=== PATIENT | female | born 1975 | race Caucasian/White ===

== ENCOUNTER 2024-12-12 10:49 | Outpatient (AMB) | payer OTHER, SELFPAY ==
--- NOTE | 2024-12-12 10:56 | MHC.PC.OV ---
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 Intake Note: new patient to establish care Shopping Centre Manager Required: No Allergies codeine Allergy (Severe, Verified 12/12/24 11:24) Hives Penicillins Allergy (Severe, Verified 12/12/24 11:24) Hives Medication List - Last Reconciled 12/12/24 by Beverly Clarke, AURELIO- No Known Home Meds Tobacco use date assessed: 12/12/24 Dental Screening Dental Screen Date: 12/12/24 Did you have a dental visit in the last 12 months?: Yes Did you have a dental problem in the last 6 months where you did not have access to dental care?: No Was dental information given to patient?: Patient has dentist HPI HPI Comments History of Present Illness Details 49 y/o F with tobacco dependence (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), panic disorder, allergic rhinitis, varicose veins, family history lung cancer (mom) Status post , tonsillectomy Family history: Father is recovering alcoholic, mother age 65 due to sepsis and lung cancer, maternal grandfather with hypertension and type 2 diabetes Social works at [employer]; 5 children, Health Maintenance DEXA still getting periods Mammo ordered today has never had one Colon declined Pap last one before COVID , refer to [facility] today Tdap 2012 declined update today, declined flu Specialists Optho ears glasses last exam 2 years ago, will get updated eye exam [facility] Here today to est care and for a CPE. Previous P[facility]: [facility], records reviewed c/o R ear and neck discomfort. She has a history of allergic rhinitis which was problematic in her youth, leading to surgery on her tonsils and adenoids, followed by weekly allergy shots. The patient's symptoms resolved after childbirth but have recurred recently. She describes a mild but persistent discomfort in her ear that extends into her neck, with itchiness also noted. The patient has sought care previously, being advised to take [id number] Sudafed & antihistamine. She has a prescription history with medications such as Claritin D, but accessibility and cost are concerns. The patient manages mild R knee pain, diagnosed with osteoarthritis, with ibuprofen. She does not report any significant swelling. She is a former smoker, having successfully quit multiple times. Health Maintenance - Declined recent flu and tetanus vaccinations. - No mammogram screening since onset of COVID-19 pandemic; agreed to mammogram referral. - Declined colonoscopy, - Eye exam due; plans to schedule under new insurance. 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 - with five children; lives in [place]. - Former smoker, currently abstaining. - Engages in various herbal and natural remedies for health maintenance. Review of Systems - Head, Eyes, Ears, Nose, Throat: Reports earache, neck discomfort, itchy ears, itchy neck. - Musculoskeletal: Reports right knee pain without significant swelling. varicose veins ble, right thigh has some congestion day 1 of menses, she manages w/ Ibu with + effect. Wore compression socks in past with + effect. Physical Exam General: Well developed, well nourished, in no acute distress. Appears stated age. Head: Normocephalic, atraumatic. Eyes: Pupils are equal, round and reactive to light and accommodation. Conjunctivae are clear. Vision grossly normal. Ears: TMs inact AU, clouding and congestion R TM EACS WNL Nose: Patent, without discharge. Mouth: There are no ulcers or lesions noted. No inflammation, no post nasal drip, no plaques nor exudates. Neck: Supple, no adenopathy or thyromegaly. Lungs: Clear to auscultation bilaterally. No rales, rhonchi or wheeze noted. Good air flow in all polk. Heart: Regular rate and rhythm. No murmurs, click, rubs or gallops are noted. Abdomen: Bowel sounds present in all quadrants. The abdomen is soft, nontender, with no masses or organomegaly noted. No hernias are noted. Musculoskeletal: Joints are nontender, without swelling, redness, or effusions. Range of motion is observed to be normal. crepitus R knee with ROM Pulses: Peripheral pulses are equal and palpable bilaterally. Varicose veins bilat lower ext Extremities: No clubbing, cyanosis nor edema is noted. Neurologic: Gait and station normal. Cranial Nerves 2-12 intact. Motor strength grossly symmetrical and intact. No sensory loss. Balance normal. Skin: No rashes, ulcers, or lesions noted. Turgor is good. Skin color is good. Hair and nails are without abnormalities. Psych: Normal eye contact, affect and mood appropriate, and normal interactions. Patient is alert and appropriate to context. Plan - Prescribe Claritin and Flonase for allergic symptoms; ensure a year's supply of refills. - Order routine screening labs, including diabetes and heart disease assessments. - [facility] [place]. - Provide OBGYN referral to [facility], ensuring a female provider is available. - Discuss potential use of gelatin supplement for joint health. - Wear compression socks, use NSAIDs to help w/ varicose veins, consider referral to vascular in the future PRN Patient was informed and verbally consented to the use of an ambient scribe for clinic note documentation during this visit. Discussion Notes During our conversation, I discussed the management of the patient's recurring allergic rhinitis symptoms. I explained the benefits of using Claritin and Flonase. We reviewed the importance of regular mammogram screenings due to her past deferrals during the COVID pandemic. Despite a previous uncomfortable experience, I acknowledged her preference for female practitioners and provided an OBGYN referral fitting this criterion. We discussed the potential benefits of gelatin supplements or knee injections for her osteoarthritis. I emphasized the importance of signing up for our patient portal for further communication and continuity of care. I highlighted alternative clinic locations and the importance of using the portal for communication instead of phone calls, to ensure timely responses. We also reiterated the patient's history of smoking cessation as beneficial to her current health status and encouraged maintaining this abstinence. RTO 1 YEAR CPE, SOONER PRN [facility] Medical History (Updated 12/12/24 @ 12:48 by Beverly Clarke, [facility]) No pertinent past medical history Surgical History (Updated 12/12/24 @ 11:15 by Adriel Bolden MA) History of tonsillectomy Family History (Updated 12/12/24 @ 11:14 by Adriel Bolden MA) Mother Substance abuse Cancer Father Substance abuse Social History (Updated 12/12/24 @ 11:13 by Adriel Bolden MA) Household Members: Significant Other and Children Both parents involved: No Caregiver staying overnight: No Housing: Apartment Are you a primary zoo caretaker to a significant other at home: Yes Do you presently have visiting nurse or other home services: No 75 years or older and lives alone: No Alcohol intake: current Alcohol intake frequency: a few times a month Patient Tobacco Use Status: Former Tobacco user Cigarette Packs Per Day: 1 Cigarettes Per Day: 20 Years Smoked: 32 e-Cigarette/Vaping Use: Never Used Second Hand Smoke Exposure: No Current occupational status: employed Current occupation: [employer] Cognitive needs: No Hearing needs: No Vision needs: Yes (wear glasses) Questionnaire PHQ-9 Over the last 2 weeks, how often have you been bothered by any of the following problems? 1. Little interest or pleasure in doing things: not at all 2. Feeling down, depressed, or hopeless: not at all 3. Trouble falling or staying asleep, or sleeping too much: not at all 4. Feeling tired or having little energy: not at all 5. Poor appetite or overeating: not at all 6. Feeling bad about yourself - or that you are a failure or have let yourself or your family down: not at all 7. Trouble concentrating on things, such as reading the newspaper or watching television: not at all 8. Moving or speaking so slowly that other people could have noticed. Or the opposite - being so fidgety or restless that you have been moving around a lot more than usual: not at all 9. Thoughts that you would be better off or of hurting yourself in some way: not at all Total score: 0 94686 - PHQ-9 Billing: Yes Source: Developed by Drs. Dixon Sabillon, Lexus Calderon, Devin Dyson and colleagues, with an educational jim from [employer]. Thrive Questionnaire Date Thrive assessed: 12/12/24 I am a: Patient What is your living situation today?: I have a steady place to live Within the past 12 months, did the food you bought not last and you didn't have the money to get more?: Never true Within the past 12 months, did you worry whether your food would run out before you got money to buy more?: Never true Do you have trouble paying for medicines?: No Do you have trouble getting transportation to medical appointments?: No Do you have trouble paying your heating and electricity bill?: No Do you have trouble taking care of your child, family member or friend?: No Do you have trouble with day-to-day activities such as bathing, preparing meals, shopping, managing finances, etc.?: No Are you currently unemployed and looking for a job?: No Are you interested in more education?: No Please select the resources that you would like help with: None Currently or been in a relationship where the following occur: No concerns reported THRIVE Score: 0 AUDIT C Alcohol Use Questionnaire (AUDIT-C) 1. How often do you have a drink containing alcohol?: Monthly or less 2. How many drinks containing alcohol do you have on a typical day when you are drinking?: 1 or 2 3. How often do you have six or more drinks on one occasion?: Never Total Score: 1 DIMA-7 AMB Questionnaire DIMA-7 Date DIMA - 7 assessed: 12/12/24 Feeling nervous, anxious, or on edge: 0 = Not at all Not being able to stop or control worryin = Not at all Worrying too much about different things: 0 = Not at all Trouble relaxin = Not at all Being so restless that it is hard to sit still: 0 = Not at all Becoming easily annoyed or irritable: 0 = Not at all Feeling afraid as if something awful might happen: 0 = Not at all Total DIMA-7 score (0-4 normal; 5-9 mild; 10-14 moderate; 15-21 severe): 0 Source: Developed by Drs. Dixon Sabillon, Lexus Calderon, Devin Dyson and colleagues, with an educational jim from [employer]. DIMA-7 Assessment Billing DIMA-7 Assessment Tool: DIMA-7 Assessment 42806 Physical exam (Primary Care) Vital Signs: Last Vital Signs Temp 97.1 F 12/12/24 11:15 Pulse 50 12/12/24 11:15 Resp 12 12/12/24 11:15 BP 102/68 12/12/24 11:15 Pulse Ox 97 12/12/24 11:15 Oxygen Delivery Method Room Air 12/12/24 11:15 BMI result Body Mass Index 30.3 BMI Assessment/Plan discussion: High Tobacco/Smoking Status: Tobacco use Status Tobacco use date assessed 12/12/24 12/12/24 11:17 Patient Tobacco Use Status Former Tobacco user 12/12/24 11:17 e-Cigarette/Vaping Use Never Used 12/12/24 11:17 PHQ-9: PHQ-9 Score PHQ-9: Total score 0 12/12/24 11:24 Thrive Assessment: Date of Thrive Assessment Date Thrive assessed 12/12/24 12/12/24 10:58 Currently or been in a relationship where the following occur: No concerns reported Coding Level of Care Code New Pt Prev Care 40-64y(35750) Diagnoses Encounter for general adult medical examination without abnormal findings Z00.00 Obesity (BMI 30-39.9) E66.9 BMI 30.0-30.9,adult Z68.30 Non-seasonal allergic rhinitis due to other allergic trigger J30.89 Allergic rhinitis trigger: other Allergic rhinitis seasonality: non-seasonal Influenza vaccination declined Z28.21 Tetanus, diphtheria, and acellular pertussis (Tdap) vaccination declined Z28.21 Colon cancer screening declined Z53.20 Laboratory exam ordered as part of routine general medical examination Z00.00 Primary osteoarthritis of right knee M17.11 Osteoarthritis type: primary Family history of lung cancer Z80.1 Former smoker Z87.891 Varicose veins of both lower extremities with inflammation I83.11; I83.12 Varicose vein complication: inflammation Additional Codes DIMA-7 Assessment Billing - DIMA-7 Assessment Tool: DIMA-7 Assessment 60419 ([id number]) PHQ-9 - 58000 - PHQ-9 Billing: Yes ([id number]) Assessment & Plan Assessment & Plan (1) Encounter for general adult medical examination without abnormal findings: Code(s): Z00.00 - Encounter for general adult medical examination without abnormal findings Category: Medical (2) Obesity (BMI 30-39.9): Code(s): E66.9 - Obesity, unspecified Category: Medical (3) BMI 30.0-30.9,adult: Code(s): Z68.30 - Body mass index [BMI] 30.0-30.9, adult Category: Medical (4) Allergic rhinitis: Code(s): J30.9 - Allergic rhinitis, unspecified Category: Medical Qualifiers: Allergic rhinitis trigger: other Allergic rhinitis seasonality: non-seasonal Qualified Code(s): J30.89 - Other allergic rhinitis (5) Influenza vaccination declined: Code(s): Z28.21 - Immunization not carried out because of patient refusal (6) Tetanus, diphtheria, and acellular pertussis (Tdap) vaccination declined: Code(s): Z28.21 - Immunization not carried out because of patient refusal Category: Medical (7) Colon cancer screening declined: Code(s): Z53.20 - Procedure and treatment not carried out because of patient's decision for unspecified reasons Category: Medical (8) Laboratory exam ordered as part of routine general medical examination: Code(s): Z00.00 - Encounter for general adult medical examination without abnormal findings Category: Medical (9) Osteoarthritis of right knee: Code(s): M17.11 - Unilateral primary osteoarthritis, right knee Category: Medical Qualifiers: Osteoarthritis type: primary Qualified Code(s): M17.11 - Unilateral primary osteoarthritis, right knee (10) Family history of lung cancer: Comment: mom Code(s): Z80.1 - Family history of malignant neoplasm of trachea, bronchus and lung Category: Medical (11) Former smoker: Code(s): Z87.891 - Personal history of nicotine dependence Category: Social Hx (12) Varicose veins of legs: Comment: BLE R>L Code(s): I83.93 - Asymptomatic varicose veins of bilateral lower extremities Category: Medical Qualifiers: Varicose vein complication: inflammation Qualified Code(s): I83.11 - Varicose veins of right lower extremity with inflammation; I83.12 - Varicose veins of left lower extremity with inflammation Plan . Orders: Orders Comprehensive Met. Panel Today Z00.00 - Encounter for general adult medical examination without abnormal findings Hemoglobin A1c Today Z00.00 - Encounter for general adult medical examination without abnormal findings Lipid Panel Today Z00.00 - Encounter for general adult medical examination without abnormal findings Vitamin B12 and Folate Today Z00.00 - Encounter for general adult medical examination without abnormal findings MM tomosynthesis screening BI Today Z12.31 - Encounter for screening mammogram for malignant neoplasm of breast Complete Blood Count no Diff Today Z00.00 - Encounter for general adult medical examination without abnormal findings Microalbumin, Random (w Creat) Today Z00.00 - Encounter for general adult medical examination without abnormal findings TSH reflex Free T4 Today Z00.00 - Encounter for general adult medical examination without abnormal findings Vitamin D 25-OH Total Today Z00.00 - Encounter for general adult medical examination without abnormal findings 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 - Schedule the ordered mammogram and routine lab tests. - Follow up with the [facility] referral for a gynecological exam. - Consider gelatin supplementation for knee joint health. - Sign up for the patient portal for better management and communication. - Contact us for any urgent issues or changes in symptoms, using the portal for efficient responses. Health screenings for women You should visit your health care provider from time to time, even if you are healthy. The purpose of these visits is to: Screen for medical issues Assess your risk for future medical problems Encourage a healthy lifestyle Update vaccinations and other preventive care services Help you get to know your provider in case of an illness Information Even if you feel fine, you should still see your provider for regular checkups. These visits can help you avoid problems in the future. For example, the only way to find out if you have high blood pressure is to have it checked regularly. High blood sugar and high cholesterol levels also may not have any symptoms in the early stages. A simple blood test can check for these conditions. There are specific times when you should see your provider or receive specific health screenings. The [place] Preventive Services Task Force publishes a list of recommended screenings. Below are screening guidelines for women ages 18 to 39. BLOOD PRESSURE SCREENING Your blood pressure should be checked at least once every 3 to 5 years if: Your blood pressure is in the normal range (top number less than 120 mm Hg and bottom number less than 80 mm Hg) You don't have risk factors for high blood pressure Ask your provider if you need your blood pressure checked more often if: The top number is 120 to 129 mm Hg or the bottom number is 70 to 79 mm Hg You have diabetes, heart disease, kidney problems, are overweight, or have certain other health conditions You have a first-degree relative with high blood pressure You are Black You had high blood pressure during a If the top number is 130 mm Hg or greater or the bottom number is 80 mm Hg or greater, this is considered stage 1 hypertension. Schedule an appointment with your provider to learn how you can reduce your blood pressure. Watch for blood pressure screenings in your area. Ask your provider if you can stop in to have your blood pressure checked. BREAST CANCER SCREENING Experts do not agree about the benefits of breast self-exams in finding breast cancer or saving lives. Talk to your provider about what is best for you. A screening mammogram is not recommended for most women under age 40. Your provider may discuss and recommend mammograms, MRI scans, or ultrasounds if you have an increased risk for breast cancer, such as: A mother or sister who had breast cancer at a young age (most often starting screening earlier than the age the close relative was diagnosed) You carry a high-risk genetic marker CERVICAL CANCER SCREENING Cervical cancer screening should start at age 21 years unless your provider advises otherwise. After the first test: Women ages 21 through 29 should have a Pap test every 3 years. Exoprts do not agree on whether HPV testing is recommended for this age group. Women ages 30 through 65 should be screened with either a Pap test every 3 years or the HPV test every 5 years or both tests every 5 years (called cotesting ). Women who have been treated for precancer (cervical dysplasia) should continue to have Pap tests for 20 years after treatment or until age 65, whichever is longer. If you have had your uterus and cervix removed (total hysterectomy), and you have not been diagnosed with cervical cancer or precancer (high grade cervical neoplasia), you do not need cervical cancer screening. CHOLESTEROL SCREENING Cholesterol screening should begin at: Age 45 for women with no known risk factors for coronary heart disease Age 20 for women with known risk factors for coronary heart disease Repeat cholesterol screening should take place: Every 5 years for women with normal cholesterol levels More often if changes occur in lifestyle (including weight gain and diet) More often if you have diabetes, heart disease, kidney problems, or certain other conditions DIABETES SCREENING You should be screened for diabetes starting at age 35 and then repeated every 3 years if you have no risk factors for diabetes. Screening may need to start earlier and be repeated more often if you have other risk factors for diabetes, such as: You have a first degree relative with diabetes. You are overweight or have obesity. You have high blood pressure, prediabetes, or a history of heart disease. Screening for diabetes should be done if you are planning to become and you are overweight and have other risk factors such as high blood pressure. DENTAL EXAM Go to the dentist once or twice every year for an exam and cleaning. Your dentist will evaluate if you need more frequent visits. EYE EXAM Have an eye exam every 5 to 10 years before age 40. If you have vision problems, have an eye exam every 2 years or more often if recommended by your provider. You should have an eye exam that includes an examination of your retina (back of your eye) at least every year if you have diabetes. IMMUNIZATIONS Commonly needed vaccines include: Flu shot: get one every year. COVID-19 vaccine: ask your provider what is best for you. Tetanus-diphtheria and acellular pertussis (Tdap) vaccine: have one at or after age 19 as one of your tetanus-diphtheria vaccines if you did not receive it as an adolescent. Tetanus-diphtheria: have a booster (or Tdap) every 10 years. Varicella vaccine: receive 2 doses if you never had chickenpox or the varicella vaccine. Hepatitis B vaccine: receive 2, 3, or 4 doses, depending on your exact circumstances. Measles, mumps, and rubella (MMR) vaccine: receive 1 to 2 doses if you are not already immune to MMR. Your provider can tell you if you are immune. Ask your provider about the human papillomavirus (HPV) vaccine if: You have not received the HPV vaccine in the past You have not completed the full vaccine series (you should catch up on this shot) Ask your provider if you should receive other immunizations if you have certain health problems that increase your risk for some diseases such as pneumonia. INFECTIOUS DISEASE SCREENING Women who are sexually active should be screened for chlamydia and gonorrhea up until age 25. Women 25 years and older should be screened for chlamydia and gonorrhea if at high risk. Screening for hepatitis C: All adults ages 18 to 79 should get a one-time test for hepatitis C. people should be screened at every . Screening for human immunodeficiency virus (HIV): All people ages 15 to 65 should get a one-time test for HIV. Depending on your lifestyle and medical history, you may also need to be screened for infections such as syphilis and HIV, as well as other infections. PHYSICAL EXAM All adults should visit their provider from time to time, even if they are healthy. The purpose of these visits is to: Screen for disease Assess your risk of future medical problems Encourage a healthy lifestyle Update your vaccinations and other preventive care services Maintain a relationship with a provider in case of an illness Your height, weight, and BMI should be checked at every exam. During your exam, your provider may ask you about: Depression and anxiety Diet and exercise Alcohol and tobacco use Safety issues, such as using seat belts, smoke detectors, and intimate partner violence Your medicines and risk for interactions SKIN SELF-EXAM Your provider may check your skin for signs of skin cancer, especially if you're at high risk, such as if you: Have had skin cancer before Have close relatives with skin cancer Have a weakened immune system OTHER SCREENING Talk with your provider about colon cancer screening if you have a strong family history of colon cancer or polyps, or if you have had inflammatory bowel disease or polyps yourself. Routine bone density screening of women under 40 is not recommended. Walk-In Care (Urgent Care): We Make it Easy Walk-in for urgent medical issues such as: ? Seasonal Allergies ? Insect Bites ? Cough ? Diarrhea ? Acute Asthma Attacks ? Back, Knee or Joint Pain ? Ear Infection ? Fever without a Rash ? Headaches ? Nausea ? [place] [facility], Rash or Skin Irritation ? Sore Throat ? Sports Physicals ? Vomiting Most insurances are accepted. Patients do not need to be part of the [facility] to seek care at the walk-in clinic. Locations [facility] , [place] [address] ? [phone] [facility] Walk-In Care in [place] provides services to ages 18 and over. Open Thursday-Thursday: 8 a.m. to 5 p.m. and Thursday: 9 a.m. to 3 p.m.* *Hours may vary due to staffing availability. To confirm Walk-In Care hours in [place], please call [phone]. [address] [place] [address] ? [phone] [facility] Walk-In Care in [place] provides services to ages 12 and over. Open Thursday-Thursday: 8 a.m. to 5 p.m. Hours may vary due to staffing availability. To confirm Walk-In Care hours in [place], please call [phone]. LABORATORY SERVICES: [facility] Lab ? Primary Location [address] [place] [address] Thursday through Thursday 6:00 AM ? 5:00 PM Thursday 7:00 AM ? 11:00 AM* [phone] [facility] Lab is centrally located near the front entrance of the Medical Center for easy outpatient access. Convenient parking is provided for outpatients. *Hours may vary due to staffing availability. To confirm Laboratory hours for any location, please call [phone]. Offsite Location For your convenience, we offer offsite laboratory draw stations at the following locations: [address] [place] [address], [facility] ? [facility] [address] [facility], [address], [place] Thursday through Thursday 7:30 AM ? 1:00 PM* [phone] *Hours may vary due to staffing availability. To confirm Laboratory hours for any location, please call [phone]. [place] ? [address], [place] Thursday through Thursday 6:00 AM ? 3:30 PM* Thursday 6:30 AM ? 3 PM* [phone] *Hours may vary due to staffing availability. To confirm Laboratory hours for any location, please call [phone] [place] [address] Thursday through Thursday 7:30 AM ? 4:00 PM* [phone] *Hours may vary due to staffing availability. To confirm Laboratory hours for any location, please call [phone] [place] [address] Thursday through 9:00 AM ? 4:00 PM* *Hours may vary due to staffing availability. To confirm Laboratory hours for any location, please call [phone]. Appointments are not necessary. Walk-ins are welcome. Like all the departments throughout the [facility], our Lab undergoes frequent reviews to ensure the quality and accuracy of test results, and our staff takes special pride in its status as a nationally accredited facility. Patient Portal: ONE PATIENT. ONE RECORD. BETTER CARE. [facility] has a fully integrated, cutting-edge mobile electronic health information system that has revolutionized the way we care for our patients and manage our organization. This system improves communication and coordination enabling us to provide safe, higher-quality care, and an overall positive experience for staff and patients. Our first priority, as always, is to deliver the highest quality care possible. The system is running in the background supporting that priority. This portal is for all [facility] services and practices. If you are experiencing any technical difficulties with enrolling or logging into the Patient Portal please complete the [facility] Patient Portal Technical Support Form. [facility] now offers a new secure on-line interactive tool for patients to review their health information ? ?Patient Portal. This interactive web portal will enable patients and their families to take an active role in their care by providing easy, secure access to their health information via the internet. The Patient Portal provides patients with instant access to their health information, including laboratory results, medications, allergies, demographic information, visit history, and more. In addition to managing their own care, parents and health care proxies with authorized consent will appreciate the ability to access the records of those individuals for whom they provide care. Please note: if you wish to gain access (Proxy) to another patient?s portal, you will be required to come to the Medical Records Department in person at [facility]. Both the patient giving proxy access and the proxy will need to provide photo identification and complete the appropriate authorization. The Patient Portal also allows track their appointments online. The [facility] Patient Portal also saves patients time by allowing them to submit updates to their demographic and contact information prior to their visits. Portal email notifications will also alert patients to any new activity on their portal, such as test results and new appointments. In order to initially enroll in the [facility] Patient Portal, you will need to enter some required information including the following: your [facility] Medical Record number your personal home email address name date of Please note: In order to enroll in the [facility] Patient Portal, we need to have your email address on file in your electronic medical record. ?The email address needs to be specific for one person (yourself) in order for your Portal enrollment to be successful. ?You can update your email address in person with our Registration staff when you are registering for a hospital visit. ?Otherwise, you will need to come to the Health Information Management (Medical Records) Department at [facility]. ?We are open from Thursday ? Thursday from 7:30 a.m. ? 4:30 p.m. ?You will be required to present a photo id. Once you have successfully enrolled in the Patient Portal, you will receive a one-time user id and password for the Portal, sent to your email address. ?This will allow you to log into the Patient Portal within 99 hrs and reset your own logon id and password, and define personal security questions. ?Once your permanent login and password have been set, you can log into the [facility] Patient Portal at any time via the blue button above or from the Portal Logon button on any page of the [facility] website. [facility] and [facility] encourage all of our patients to enroll in Patient Portal as it presents a valuable opportunity for patients and their families to actively participate in their care and stay healthy Welcome to [facility]. ?We look forward to working with you.
[2024-12-12 11:15] VITALS: BP 102/68; PULSE 50; RESP 12; TEMP 36.2; O2SAT 97; BMI 30.3
--- OUTSIDE RECORDS SUMMARY | 2024-12-12 11:47 | XMS_ITS | Clinical Summary ---
Author Organization [facility] ity Address [address] [place] [address] Care Team Providers Care Cold Saw Operator Name Role Phone Unavailable Primary Care Provider Unavailabl e Social History Tobacco Use Types Packs/Day Years Used Date Smoking Tobacco: Never Assessed Sex and Gender Information Value Date Recorded Sex Assigned at Not on file Gender Identity Not on file Sexual Orientation Not on file Plan of Treatment Health Maintenance Due Date Last Done Comments Breast Cancer Screening 1975 DTaP,Tdap,and Td Vaccines (1 - Tdap) 1994 Hepatitis B Vaccines (1 of 3 - 19+ 3-dose series) 1994 Cervical Cancer Screening: P ap Smear 1996 COVID-19 Vaccine (2023-2 5 season) 2024 Influenza Vaccine (#1) 2024 Colorectal Cancer Screening: Colonoscopy 08/17/2024 Depression Screening 08/17/2024 HIV Screening 08/17/2024 Hepatitis C Screening 08/17/2024 Social Influencers of Health Screening 08/17/2024 HIB Vaccines Aged Out No longer eligi ble based on patient's age to complete this topic HPV Vaccines Aged Out No longer eligi ble based on patient's age to complete this topic Hepatitis A Vaccines Aged Out No long er eligible based on patient's age to complete this topic IPV Vaccines Aged Out No longer eligi ble based on patient's age to complete this topic MMR Vaccines Aged Out No longer eligi ble based on patient's age to complete this topic Meningococcal ACWY Vaccine Aged Out N o longer eligible based on patient's age to complete this topic Pneumococcal Vaccine: Pediat rics (0 to 5 Years) and At-Risk Patients (6 to 64 Years) Aged Out No longer eligible b ased on patient's age to complete this topic RSV Immunization Patients Un елена 20 months Aged Out No longer eligible b ased on patient's age to complete this topic Varicella Vaccines Aged Out No longer eligible based on patient's age to complete this topic
== END 2024-12-12 11:59 | disposition home or self-care (01) ==
PROVIDERS: PCP Nurse Practitioner Family; Visit Provider Nurse Practitioner Family
DX: Z00.00 Encounter for general adult medical examination without abnormal findings (principal); E66.9 Obesity, unspecified; Z68.30 Body mass index [BMI] 30.0-30.9, adult; J30.89 Other allergic rhinitis; Z28.21 Immunization not carried out because of patient refusal; Z53.20 Procedure and treatment not carried out because of patient's decision for unspecified reasons; M17.11 Unilateral primary osteoarthritis, right knee; Z80.1 Family history of malignant neoplasm of trachea, bronchus and lung; Z87.891 Personal history of nicotine dependence; I83.11 Varicose veins of right lower extremity with inflammation; I83.12 Varicose veins of left lower extremity with inflammation

== ENCOUNTER 2024-12-12 11:51 | Outpatient (REF) | payer OTHER, SELFPAY ==
--- OUTSIDE RECORDS SUMMARY | 2024-12-12 13:14 | XMS_ITS | Clinical Summary ---
Author Organization [facility] ity Address [address] [place] [address] Care Team Providers Care Graduate Intern Name Role Phone Unavailable Primary Care Provider [...]
[2024-12-12 14:16] LABS: Hematocrit 40.9 % (37.0-47.0); Hemoglobin 13.4 g/dl (12.0-16.0); Mean Corpuscular HGB Conc 32.8 g/dl (31.0-35.0); Mean Corpuscular Hemoglobin 29.3 pg (27.0-33.0); Mean Corpuscular Volume 89.5 fL (80.0-98.0); Mean Platelet Volume 10.8 fL (9.4-12.3); Platelet Count 277 X10*3/uL (160-400); Red Blood Count 4.57 X10*6/uL (4.20-5.50); Red Cell Distribution Width 13.2 % (11.0-16.0); White Blood Count 8.8 X10*3/uL (4.8-10.8)
[2024-12-12 14:30] LABS: Estimated Average Glucose 105 mg/dL; Hemoglobin A1c % 5.3 % (<6.0); Total Hemoglobin (HGBA1C) 3629.3174 umol/L
[2024-12-12 14:49] LABS: TSH reflex Free T4 1.89 uIU/mL (0.32-4.0); Vitamin D 25-OH Total 28.5 ng/mL (>30)
[2024-12-12 15:00] LABS: Alanine Aminotransferase 15 U/L (0-31); Albumin Level 4.1 g/dL (3.5-5.0); Anion Gap 11 (12-20); Aspartate Amino Transferase 21 U/L (5-31); Bilirubin Total 0.6 mg/dL (0.0-1.0); Blood Urea Nitrogen 14 mg/dL (9-16); Calcium 9.2 mg/dL (8.4-10.2); Carbon Dioxide 23 mmol/L (22-29); Chloride 106 mmol/L (96-108); Cholesterol 213 mg/dL (<200); Estimated Glomerular Filt Rate > 60; Glucose Random 91 mg/dL (60-115); HDL Cholesterol 41 mg/dL (>40); LDL Cholesterol Calculated 116 mg/dL (<100); Potassium 4.1 mmol/L (3.3-5.1); Sodium 136 mmol/L (135-145); Total Protein 7.2 g/dL (6.5-8.0); Triglycerides 281 mg/dL (<150)
[2024-12-12 15:06] LABS: Folate 9.7 ng/mL (> or = 4.0); Vitamin B12 318 pg/mL (200-900)
[2024-12-12 15:18] LABS: Creatinine Urine 58.61 mg/dL; Microalbumin Urine < 5.0 mg/L
[2024-12-12 17:06] LABS: Alkaline Phosphatase 66 U/L (39-117)
== END 2024-12-12 11:52 | disposition home or self-care (01) ==
LOC: HO.WFDLDS 11:51
PROVIDERS: Visit Provider Nurse Practitioner Family
DX: Z00.00 Encounter for general adult medical examination without abnormal findings (principal); E66.9 Obesity, unspecified; Z68.30 Body mass index [BMI] 30.0-30.9, adult; J30.89 Other allergic rhinitis; M17.11 Unilateral primary osteoarthritis, right knee; I83.11 Varicose veins of right lower extremity with inflammation; Z28.21 Immunization not carried out because of patient refusal; Z87.891 Personal history of nicotine dependence; Z80.1 Family history of malignant neoplasm of trachea, bronchus and lung
CPT/HCPCS: 36415; 80053; 80061; 82043; 82306; 82570; 82607; 82746; 83036; 84443; 85027; 96127; 99386

== ENCOUNTER 2025-02-08 | Outpatient (REF) | payer OTHER, SELFPAY ==
--- OUTSIDE RECORDS SUMMARY | 2025-05-04 17:56 | XMS_ITS | Clinical Summary ---
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
== END 2025-02-08 00:01 | disposition home or self-care (01) ==
LOC: CF
PROVIDERS: Visit Provider Nurse Practitioner Family
DX: R10.12 Left upper quadrant pain (principal); R19.7 Diarrhea, unspecified; I83.11 Varicose veins of right lower extremity with inflammation; I83.12 Varicose veins of left lower extremity with inflammation; M17.11 Unilateral primary osteoarthritis, right knee
CPT/HCPCS: 99212

== ENCOUNTER → 2025-02-08 09:25 | Outpatient (AMB) | payer OTHER, SELFPAY ==
--- NOTE | 2025-02-08 09:27 | MHC.PC.OV ---
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: No Is last menstrual period known: Yes Last menstrual period: 01/18/25 Post menopausal: No Patient : No Allergies codeine Allergy (Severe, Verified 02/08/25 09:52) Hives Penicillins Allergy (Severe, Verified 02/08/25 09:52) Hives Medication List - Last Reconciled 02/08/25 by AURELIO Grant- fluticasone propionate 50 mcg/actuation 1 spray intranasal BID loratadine (Allergy Relief (loratadine)) 10 mg PO DAILY Tobacco use date assessed: 02/08/25 Dental Screening Dental Screen Date: 02/08/25 Did you have a dental visit in the last 12 months?: Yes Did you have a dental problem in the last 6 months where you did not have access to dental care?: No Was dental information given to patient?: Patient has dentist HPI HPI Comments History of Present Illness Details 49 y/o F with tobacco dependence (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), panic disorder, allergic rhinitis, varicose veins, family history lung cancer (mom) Here today with complaints of left upper quadrant pain. Reports that on Thursday she developed diarrhea which has improved took continues with the last episode of diarrhea being today. The diarrhea is nonbloody. Flare she does note some mucus in the stool today. She denies any fever, chills, nausea, vomiting. She does endorse some acid reflux which is not unusual. Has intermittent acid reflux which is usually controlled [id number] Tums intermittent area. Able to tolerate p.o. intake but admits to consuming a bland diet. Denies any issues with urination. Exam Awake alert NAD Scleras nonicteric bilat MMM LS CTAB No CVAT Normoactive bs, abd soft, very mild tenderness LUQ w/o rebound or rigidity w/ deep palpation Plan Discussed watch and wait and utilize simethicone to see if this is gas pain. If no improvement or worsening recommend to stop in and get labs done Ok to cont TUMS Send message on portal if you get labs done Edu on reasons to seek higher level of care. Other notes reports improvement in knee pain, lower ext edema and varicose veins w/ use of OTC compression. Total time spent caring for the patient today was 30 minutes. This includes time spent before the visit reviewing the chart, time spent during the visit, and time spent after the visit on documentation, reviewing laboratory results, diagnostic imaging, medications, performing a medically necessary evaluation, counseling on diagnoses, care coordination, ordering appropriate tests, ordering appropriate medications, review of tests performed by other providers, reporting test results with the patient, communication with other healthcare providers. [facility] Medical History (Updated 01/20/25 @ 15:31 by TRACY Grant) No pertinent past medical history Surgical History (Updated 01/20/25 @ 15:31 by TRACY Grant) Colon cancer screening declined (~2024) History of tonsillectomy Family History (Updated 12/12/24 @ 11:14 by Adriel Bolden MA) Mother Substance abuse Cancer Father Substance abuse Social History (Updated 12/12/24 @ 11:13 by Adriel Bolden MA) Household Members: Significant Other and Children Both parents involved: No Caregiver staying overnight: No Housing: Apartment Are you a primary floor care technician to a significant other at home: Yes Do you presently have visiting nurse or other home services: No 75 years or older and lives alone: No Alcohol intake: current Alcohol intake frequency: a few times a month Patient Tobacco Use Status: Former Tobacco user Cigarette Packs Per Day: 1 Cigarettes Per Day: 20 Years Smoked: 32 e-Cigarette/Vaping Use: Never Used Second Hand Smoke Exposure: No Current occupational status: employed Current occupation: [employer] Cognitive needs: No Hearing needs: No Vision needs: Yes (wear glasses) Female Reproductive History Menstrual Date of last menstrual period: 01/18/25 Questionnaire Thrive Questionnaire Date Thrive assessed: 12/12/24 DIMA-7 AMB Questionnaire DIMA-7 Date DIMA - 7 assessed: 12/12/24 Source: Developed by Drs. Dixon Sabillon, Lexus Calderon, Devin Dyson and colleagues, with an educational jim from [employer]. Physical exam (Primary Care) Vital Signs: Last Vital Signs Temp 98.2 F 02/08/25 09:31 Pulse 61 02/08/25 09:31 Resp 16 02/08/25 09:31 BP 123/65 02/08/25 09:31 Pulse Ox 99 02/08/25 09:31 Oxygen Delivery Method Room Air 02/08/25 09:31 BMI result Body Mass Index 30.1 Tobacco/Smoking Status: Tobacco use Status Tobacco use date assessed 02/08/25 02/08/25 09:33 Patient Tobacco Use Status Former Tobacco user 02/08/25 09:29 e-Cigarette/Vaping Use Never Used 02/08/25 09:29 Thrive Assessment: Date of Thrive Assessment Date Thrive assessed 12/12/24 02/08/25 09:29 Coding Level of Care Code Est Pt Level 4 (49460) Complex EM visit Add On G2211 Diagnoses LUQ pain R10.12 Diarrhea, unspecified type R19.7 Diarrhea type: unspecified type Varicose veins of both lower extremities with inflammation I83.11; I83.12 Varicose vein complication: inflammation Primary osteoarthritis of right knee M17.11 Osteoarthritis type: primary Assessment & Plan Assessment & Plan (1) LUQ pain: Code(s): R10.12 - Left upper quadrant pain (2) Diarrhea: Code(s): R19.7 - Diarrhea, unspecified Qualifiers: Diarrhea type: unspecified type Qualified Code(s): R19.7 - Diarrhea, unspecified (3) Varicose veins of legs: Comment: BLE R>L Code(s): I83.93 - Asymptomatic varicose veins of bilateral lower extremities Category: Medical Qualifiers: Varicose vein complication: inflammation Qualified Code(s): I83.11 - Varicose veins of right lower extremity with inflammation; I83.12 - Varicose veins of left lower extremity with inflammation (4) Osteoarthritis of right knee: Code(s): M17.11 - Unilateral primary osteoarthritis, right knee Category: Medical Qualifiers: Osteoarthritis type: primary Qualified Code(s): M17.11 - Unilateral primary osteoarthritis, right knee Plan . Orders: Orders GI Panel Today R10.12 - Left upper quadrant pain Amylase Today R10.12 - Left upper quadrant pain Lipase Today R10.12 - Left upper quadrant pain Liver Panel Today R10.12 - Left upper quadrant pain Fecal Fat Qualitative Today R10.12 - Left upper quadrant pain Patient Instructions: Simethicone 125mg 1 tab up to four times per day Get this over the counter - Use simethicone as directed to relieve gas symptoms. - Continue to take TUMS for heartburn as needed and avoid dietary triggers. - Keep using compression stockings to manage knee swelling and pain. - Monitor for any worsening symptoms and return for evaluation if symptoms persist. - No lab work is required unless symptoms do not improve or worsen.
[2025-02-08 09:31] VITALS: BP 123/65; PULSE 61; RESP 16; TEMP 36.8; O2SAT 99; BMI 30.1
--- OUTSIDE RECORDS SUMMARY | 2025-02-08 10:31 | XMS_ITS | Clinical Summary ---
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
== END ==
LOC: HO.HMCWIW 09:25
PROVIDERS: PCP Nurse Practitioner Family; Visit Provider Nurse Practitioner Family
DX: R10.12 Left upper quadrant pain (principal); R19.7 Diarrhea, unspecified; I83.11 Varicose veins of right lower extremity with inflammation; I83.12 Varicose veins of left lower extremity with inflammation; M17.11 Unilateral primary osteoarthritis, right knee

== ENCOUNTER 2025-03-03 08:35 | Outpatient (REF) | payer OTHER, SELFPAY ==
--- OUTSIDE RECORDS SUMMARY | 2025-03-03 08:37 | XMS_ITS | Clinical Summary ---
Author Organization [facility] ity Address [address] [place] [address] Care Team Providers Care Animal Hospital Office Supervisor Name Role Phone Unavailable Primary Care Provider [...] 1996 COVID-19 Vaccine (2023-2 5 season) 2024 Colorectal Cancer Screening: Colonoscopy 08/17/2024 Depression Screening 08/17/2024 HIV Screening 08/17/2024 Hepatitis C Screening 08/17/2024 Social Influencers of Health Screening 08/17/2024 Influenza Vaccine (Season Ended) 2025 HIB Vaccines Aged Out No longer eligi [...] age to complete this topic Meningococcal B Vaccine Aged Out No l onger eligible based on patient's age to complete [...]
[2025-03-03 11:00] LABS: Alanine Aminotransferase 16 U/L (0-31); Albumin Level 4.1 g/dL (3.5-5.0); Alkaline Phosphatase 70 U/L (39-117); Amylase 43 U/L (28-100); Aspartate Amino Transferase 17 U/L (5-31); Bilirubin Direct 0.2 mg/dL (0.0-0.5); Bilirubin Total 0.7 mg/dL (0.0-1.0); Lipase 15 U/L (8-78); Total Protein 6.8 g/dL (6.5-8.0)
== END 2025-03-03 08:36 | disposition home or self-care (01) ==
LOC: HO.WFDLDS 08:35
PROVIDERS: Visit Provider Nurse Practitioner Family
DX: R10.12 Left upper quadrant pain (principal)
CPT/HCPCS: 36415; 80076; 82150; 83690

== ENCOUNTER 2025-03-15 14:21 | Outpatient (AMB) | payer OTHER, SELFPAY ==
--- NOTE | 2025-03-15 14:46 | A.OFFPC_ITS ---
Intake Visit Reasons: Rash Intake Note: Telehealth follow up on rash Dental Assistant Required: No Allergies codeine Allergy (Severe, Verified 03/15/25 14:56) Hives Penicillins Allergy (Severe, Verified 03/15/25 14:56) Hives Medication List - Last Reconciled 03/15/25 by AURELIO Grant- fluticasone propionate 50 mcg/actuation 1 spray intranasal BID loratadine (Allergy Relief (loratadine)) 10 mg PO DAILY Tobacco use date assessed: 02/08/25 Dental Screening Dental Screen Date: 02/08/25 HPI HPI Comments 2 History of Present Illness0 Details History of Present Illness - The patient is a 49-year-old female pr esenting with persistent dermatitis of the left elbow. - Developed an initial rash a couple of weeks prior on her forearms after contact with fertilized dirt, resolving with Benadryl and cortisone cream. - Following this, the patient experience d a persistent rash at the left elbow, slightly raised, itchy, and dry, exacerbated by dryness and bending the elbow. - Scratching during sleep led to bleedin g from a mole and exacerbation by a bandage-induced rash. - Past adhesive bandage usage resulted i n allergic contact dermatitis, with oval stanley remaining in the area. - was also using calamine to dry the ski n; skin became over dry Assessment and Plan 1. Contact Dermatitis Prescribed betamethasone cream for application twice daily on the left elbow. Advised avoiding Calamine lotion to prevent dryness and recommended Eucerin or CeraVe for hydration. 2. Allergy to Adhesive Bandages Advised against the use of allergenic adhesive bandages, encouraging hypoallergenic alternatives to prevent irritation. Edu on reasons to seek additional care or f/u sooner Telehealth Attestation This visit was conducted via telehealth, and the documentation accurately reflects the encounter. The patient has been explained that this is an interactive (audio/video) telehealth encounter and what that consists of. The patient understands and wishes to proceed. [employer] platform was used. Total time spent caring for the patient today was 15 minutes. This includes time spent before the visit reviewing the chart, time spent during the visit, and time spent after the visit on documentation, reviewing laboratory results, diagnostic imaging, medications, performing a medically necessary evaluation, counseling on diagnoses, care coordination, ordering appropriate tests, ordering appropriate medications, review of tests performed by other providers, reporting test results with the patient, communication with other healthcare providers. Left antecubital: [facility] Medical History (Updated 01/20/25 @ 15:31 by Beverly Clarke [facility]) No pertinent past medical history Surgical History (Updated 01/20/25 @ 15:31 by Beverly Clarke [facility]) Colon cancer screening declined (~2024) History of tonsillectomy Family History (Updated 12/12/24 @ 11:14 by Adriel Bolden MA) Mother Substance abuse Cancer Father Substance abuse Social History (Updated 12/12/24 @ 11:13 by Adriel Bolden MA) Household Members: Significant Other and Children Both parents involved: No Caregiver staying overnight: No Housing: Apartment Are you a primary pet care assistant to a significant other at home: Yes Do you presently have visiting nurse or other home services: No 75 years or older and lives alone: No Alcohol intake: current Alcohol intake frequency: a few times a month Patient Tobacco Use Status: Former Tobacco user Cigarette Packs Per Day: 1 Cigarettes Per Day: 20 Years Smoked: 32 Packs Per Year: 32 Packs per year/per ci.00 e-Cigarette/Vaping Use: Never Used Second Hand Smoke Exposure: No Current occupational status: employed Current occupation: [employer] Cognitive needs: No Hearing needs: No Vision needs: Yes (wear glasses) Questionnaire Thrive Questionnaire Date Thrive assessed: 12/12/24 I am a: Patient What is your living situation today?: I have a steady place to live Within the past 12 months, did the food you bought not last and you didn't have the money to get more?: Never true Within the past 12 months, did you worry whether your food would run out before you got money to buy more?: Never true Do you have trouble paying for medicines?: No Do you have trouble getting transportation to medical appointments?: No Do you have trouble paying your heating and electricity bill?: No Do you have trouble taking care of your child, family member or friend?: No Do you have trouble with day-to-day activities such as bathing, preparing meals, shopping, managing finances, etc.?: No Are you currently unemployed and looking for a job?: No Are you interested in more education?: No Please select the resources that you would like help with: None Currently or been in a relationship where the following occur: No concerns reported THRIVE Score: 0 DIMA-7 AMB Questionnaire DIMA-7 Date DIMA - 7 assessed: 12/12/24 Source: Developed by Drs. Dixon Sabillon, Lexus Calderon, Devin Dyson and colleagues, with an educational jim from [email or web address]. Physical exam (Primary Care) Tobacco/Smoking Status: Tobacco use Status Tobacco use date assessed 02/08/25 03/15/25 14:47 Patient Tobacco Use Status Former Tobacco user 03/15/25 14:47 e-Cigarette/Vaping Use Never Used 03/15/25 14:47 Thrive Assessment: Date of Thrive Assessment Date Thrive assessed 12/12/24 03/15/25 14:47 Currently or been in a relationship where the following occur: No concerns reported Telehealth Telehealth Telehealth Platform: [facility] Location of provider rendering services: practice address Location of patient: address on file Patient Identification confirmed using: Name, : Yes Telehealth method: voice only Patient verbally consented to treatment: Yes Patient verbally consented to billing insurance company: Yes Patient informed of any privacy concerns related to visit: Yes Minutes spent on Phone/Video with Pt.: 7 Coding Level of Care Code Tele Est Pt Level 2 (85022) Complex EM visit Add On G2211 Diagnoses Rash and other nonspecific skin eruption R21 Assessment & Plan Assessment & Plan (1) Rash and other nonspecific skin eruption: Code(s): R21 - Rash and other nonspecific skin eruption Plan . Medications: New 2 betamethasone dipropionate 0.05% 1 appl topical BID PRN 45 grams 0RF skin irritation
--- OUTSIDE RECORDS SUMMARY | 2025-03-15 15:31 | XMS_ITS | Clinical Summary ---
Author Organization [facility] ity Address [address] [place] [address] Care Team Providers Care Cardiopulmonary Physical Therapist Name Role Phone Unavailable Primary Care Provider [...]
== END 2025-03-15 17:05 | disposition home or self-care (01) ==
LOC: HO.HMCFM 14:21
PROVIDERS: PCP Nurse Practitioner Family; Visit Provider Nurse Practitioner Family
DX: R21 Rash and other nonspecific skin eruption (principal)

== ENCOUNTER → 2025-03-15 14:21 | Outpatient (BNVA) | payer OTHER, SELFPAY | PROVIDERS: PCP Nurse Practitioner Family; Visit Provider Nurse Practitioner Family | DX: Z13.89 Encounter for screening for other disorder (principal) ==

== ENCOUNTER 2025-08-15 12:50 | Outpatient (AMB) | payer OTHER, SELFPAY ==
--- NOTE | 2025-08-15 12:52 | AM.OFFWIN_ITS ---
Intake Vital Signs 08/15/25 12:58 Height 5 ft 7.5 in Weight 205 lb BMI 31.6 BP 124/70 Blood Pressure Location Lt brachial Position Sitting Respiration 12 Pulse 78 Pulse Source Pulse Oximeter Temp 97.1 F Temp Source Oral Pulse Oximetry (%) 99 Oxygen Delivery Method Room Air Intake Visit Reasons: right leg and knee pain Intake Note: Patient c/o right leg, knee px and radiating to upper leg and tender to the touch. Patient Tobacco Use Status: Former Tobacco user Juice Mixer Required: No Allergies codeine Allergy (Severe, Verified 08/15/25 12:53) Hives Penicillins Allergy (Severe, Verified 08/15/25 12:53) Hives Do you need a note to return to daycare/school/sports/work: No PFSH Medical History (Updated 01/20/25 @ 15:31 by Beverly Clarke [facility]) No pertinent past medical history Surgical History (Updated 01/20/25 @ 15:31 by Beverly Clarke [facility]) Colon cancer screening declined (~2024) History of tonsillectomy Family History (Updated 12/12/24 @ 11:14 by Adriel Bolden MA) Mother Substance abuse Cancer Father Substance abuse Social History (Updated 12/12/24 @ 11:13 by Adriel Bolden MA) Household Members: Significant Other and Children Both parents involved: No Caregiver staying overnight: No Housing: Apartment Are you a primary client care representative to a significant other at home: Yes Do you presently have visiting nurse or other home services: No 75 years or older and lives alone: No Alcohol intake: current Alcohol intake frequency: a few times a month Patient Tobacco Use Status: Former Tobacco user Cigarette Packs Per Day: 1 Cigarettes Per Day: 20 Years Smoked: 32 e-Cigarette/Vaping Use: Never Used Second Hand Smoke Exposure: No Current occupational status: employed Current occupation: [employer] Cognitive needs: No Hearing needs: No Vision needs: Yes (wear glasses) 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
[2025-08-15 12:58] VITALS: BP 124/70; PULSE 78; RESP 12; TEMP 36.2; O2SAT 99; BMI 31.6
--- NOTE | 2025-08-15 13:00 | A.OFFPC_ITS ---
Vital Signs 08/15/25 12:58 Height 5 ft 7.5 in Weight 205 lb BMI 31.6 BP 124/70 Blood Pressure Location Lt brachial Position Sitting Respiration 12 Pulse 78 Pulse Source Pulse Oximeter Temp 97.1 F Temp Source Oral Pulse Oximetry (%) 99 Oxygen Delivery Method Room Air Intake Visit Reasons: right leg and knee pain Allergies codeine Allergy (Severe, Verified 08/15/25 13:00) Hives Penicillins Allergy (Severe, Verified 08/15/25 13:00) Hives Medication List - Last Reconciled 08/15/25 by Beverly Clarke, [employer]- betamethasone dipropionate 0.05% 1 appl topical BID PRN fluticasone propionate 50 mcg/actuation 1 spray intranasal BID loratadine (Allergy Relief (loratadine)) 10 mg PO DAILY Tobacco use date assessed: 02/08/25 Dental Screening Dental Screen Date: 02/08/25 HPI HPI Comments History of Present Illness Details 50 y/o F with tobacco dependence (in rem ission December 2017), panic disorder, allergic rhinitis, varicose veins, family history lung cancer (mom) Here today w/ Right leg complaints Stomach bug x 2 days was not wearing compression socks for 4-5 days feels like bone ache in lateral right thigh/knee area lateral upper leg and into R buttocks she has the aching pain Itchy around the ankle pain in the heel wearing shoes w/ inserts made it worse achilles tendon pain and foot pain a few weeks ago broke a heavy dish on top of R foot This caused a painful lump that cont using nsaids w/ some relief Feels like 3 different issues has varicose veins that usually respond well to compression and nsaids. always are bothered by her menses Denies chest pain, sob, loss of sensation. Exam: Awake alert NAD PERRLA Speaking in full sentences RLE neurovasc intact, + varicose veins upper and lower leg, + PP, no erythema, no excessive warmth; Medial ankle is a papular rash w/o drainage or infections, appears to be secondary excoriations; has pain over achilles insertion at the heel w/ some localized edema; pain and palpable lump dorsum of R foot in the area where the injury occured. Neuro exam grossly normal I discussed with the patient the likely diagnosis of right Achilles tendonitis and the possibility of a DVT given recent activity changes and symptoms. I recommended a venous ultrasound of the right lower extremity to rule out a clot urgently. I informed the patient about the process of the ultrasound. We discussed trying indomethacin for pain management, emphasizing the necessity of taking it with food. I educated the patient about ankle and foot stretching exercises for managing the Achilles tendonitis and advised against immo bilization of the foot. The patient expressed understanding of the need to avoid further trauma and agreed to adhere to management plans. I also discussed the importance of wearing compression stockings consistently, especially with periods of prolonged inactivity. The patient declined a flu vaccination today. Consent for the ultrasound was obtained and a follow-up plan was established. Patient was given time to ask questions. All questions were answered to their satisfaction. A&P 1. Right lower extremity pain/ RO DVT - Use indomethacin for pain. - Perform stat venous ultrasound. 2. Right Achilles tendonitis - Advise stretching to reduce inflammati on. - Exercise PDF provided 3. History of trauma to the right foot - Monitor and avoid further injury. 4. Varicose veins - Advocate compression stocking use. 5. Declined flu vaccine. Patient Instructions: - Take indomethacin twice daily with javier d if needed for pain. - Stretch foot and ankle to reduce pain. - Wear proper shoe inserts to support th e foot. - Wear compression stockings regularly. - Report changes or worsening of leg sym ptoms to my office. - Proceed to the hospital for an ultraso und as scheduled. - Avoid catching objects with your feet. Total time spent caring for the patient today was 30 minutes. This includes time spent before the visit reviewing the chart, time spent during the visit, and mary e spent after the visit on documentation, reviewing laboratory results, diagnostic imaging, medications, performing a medically necessary evaluation, counseling on diagnoses, care coordination, ordering appropriate tests, ordering appropriate medications, review of tests performed by other providers, reporting test results with the patient, communication with other healthcare providers. [facility] Medical History (Updated 08/15/25 @ 13:29 by AURELIO Grant-ANDREIA) No pertinent past medical history Surgical History (Updated 01/20/25 @ 15:31 by AURELIO Grant-ANDREIA) Colon cancer screening declined (~2024) History of tonsillectomy Family History (Updated 12/12/24 @ 11:14 by Adriel Bolden MA) Mother Substance abuse Cancer Father Substance abuse Social History (Updated 12/12/24 @ 11:13 by Adriel Bolden MA) Household Members: Significant Other and Children Housing: Apartment Are you a primary animal care taker to a significant other at home: Yes Do you presently have visiting nurse or other home services: No Alcohol intake: current Alcohol intake frequency: a few times a month Patient Tobacco Use Status: Former Tobacco user Cigarette Packs Per Day: 1 Cigarettes Per Day: 20 Years Smoked: 32 e-Cigarette/Vaping Use: Never Used Second Hand Smoke Exposure: No Current occupational status: employed Current occupation: [employer] Cognitive needs: No Hearing needs: No Vision needs: Yes (wear glasses) Questionnaire Thrive Questionnaire Date Thrive assessed: 12/12/24 I am a: Patient What is your living situation today?: I have a steady place to live Within the past 12 months, did the food you bought not last and you didn't have the money to get more?: Never true Within the past 12 months, did you worry whether your food would run out before you got money to buy more?: Never true Do you have trouble paying for medicines?: No Do you have trouble getting transportation to medical appointments?: No Do you have trouble paying your heating and electricity bill?: No Do you have trouble taking care of your child, family member or friend?: No Do you have trouble with day-to-day activities such as bathing, preparing meals, shopping, managing finances, etc.?: No Are you currently unemployed and looking for a job?: No Are you interested in more education?: No Please select the resources that you would like help with: None Currently or been in a relationship where the following occur: No concerns reported THRIVE Score: 0 DIMA-7 AMB Questionnaire DIMA-7 Date DIMA - 7 assessed: 12/12/24 Source: Developed by Drs. Dixon Sabillon, Lexus Calderon, Devin Dyson and colleagues, with an educational jim from [employer]. Physical exam (Primary Care) Vital Signs: Last Vital Signs Temp 97.1 F 08/15/25 12:58 Pulse 78 08/15/25 12:58 Resp 12 08/15/25 12:58 BP 124/70 08/15/25 12:58 Pulse Ox 99 08/15/25 12:58 Oxygen Delivery Method Room Air 08/15/25 12:58 BMI result Body Mass Index 31.6 Tobacco/Smoking Status: Tobacco use Status Tobacco use date assessed 02/08/25 03/15/25 14:47 Patient Tobacco Use Status Former Tobacco user 03/15/25 14:47 e-Cigarette/Vaping Use Never Used 03/15/25 14:47 Thrive Assessment: Date of Thrive Assessment Date Thrive assessed 12/12/24 03/15/25 14:47 Currently or been in a relationship where the following occur: No concerns reported Coding Level of Care Code Est Pt Level 4 (42096) Complex EM visit Add On G2211 Diagnoses Varicose veins of both lower extremities with inflammation I83.11; I83.12 Varicose vein complication: inflammation Right leg pain M79.604 Influenza vaccination declined Z28.21 Injury of right foot, initial encounter S99.921A Encounter type: initial encounter Assessment & Plan Assessment & Plan (1) Varicose veins of legs: Comment: BLE R>L Code(s): I83.93 - Asymptomatic varicose veins of bilateral lower extremities Category: Medical Qualifiers: Varicose vein complication: inflammation Qualified Code(s): I83.11 - Varicose veins of right lower extremity with inflammation; I83.12 - Varicose veins of left lower extremity with inflammation (2) Right leg pain: Code(s): M79.604 - Pain in right leg Category: Medical (3) Influenza vaccination declined: Onset Date: ~08/15/25 Code(s): Z28.21 - Immunization not carried out because of patient refusal Category: Medical (4) Injury of right foot: Code(s): S99.921A - Unspecified injury of right foot, initial encounter Qualifiers: Encounter type: initial encounter Qualified Code(s): S99.921A - Unspecified injury of right foot, initial encounter Plan . Orders: Orders US venous duplex LE RT Today I83.11 - Varicose veins of right lower extremity with inflammation, I83.12 - Varicose veins of left lower extremity with inflammation, M79.604 - Pain in right leg Medications: New indomethacin administer with food or milk 50 mg PO BID PRN 180 caps 0RF pain
--- OUTSIDE RECORDS SUMMARY | 2025-08-15 15:42 | XMS_ITS | Clinical Summary ---
Author Organization [facility] ity Address [address] [place] [address] Care Team Providers Care Primary Teacher Name Role Phone Unavailable Primary Care Provider [...] Last Done Comments Breast Cancer Screening 1975 Colorectal Cancer Screening: Colonoscopy 1975 DTaP,Tdap,and Td Vaccines (1 - Tdap) 1994 Hepatitis B Vaccines (1 of 3 - 19+ 3-dose series) 1994 Cervical Cancer Screening: P ap Smear 1996 HIV Screening 08/17/2024 Hepatitis C Screening 08/17/2024 Social Influencers of Health Screening 08/17/2024 Depression Screening 11/09/2024 Pneumococcal Vaccine: 50+ Ye ars (1 of 1 - PCV) 2025 Zoster Vaccines (1 of 2) 2025 COVID-19 Vaccine (1 - 2023-2 5 season) 2025 Influenza Vaccine (#1) 2025 RSV Immunization Adult Patie nts (1 - 1-dose 75+ series) 2050 HIB Vaccines Aged Out No longer eligi [...]
== END 2025-08-15 13:32 | disposition home or self-care (01) ==
LOC: HO.HMCFM 12:51
PROVIDERS: PCP Nurse Practitioner Family; Visit Provider Nurse Practitioner Family
DX: I83.11 Varicose veins of right lower extremity with inflammation (principal); I83.12 Varicose veins of left lower extremity with inflammation; M79.604 Pain in right leg; Z28.21 Immunization not carried out because of patient refusal; S99.921A Unspecified injury of right foot, initial encounter

== ENCOUNTER 2025-08-15 16:04 | Outpatient (REF) | payer OTHER, SELFPAY ==
--- NOTE | ~2025-08-15 | US_ITS ---
EXAMINATION: US TRIPLEX LOWER EXTREMITY, RIGHT CLINICAL INFORMATION: Varicose veins of right lower extremity with inflammation. Rule out DVT. COMPARISON: None available. TECHNIQUE: Color-flow triplex imaging with spectral analysis and compression Doppler were performed on the right lower extremity. FINDINGS: Respiratory variation, normal compression and augmented flow are noted throughout the right lower extremity. The visualized common femoral vein, superficial femoral vein, profunda femoral vein, popliteal vein and midcalf peroneal and posterior tibial venous segments show no evidence of deep venous thrombosis. There is no Leslie's cyst. US/US venous duplex LE RT IMPRESSION: No evidence of deep venous thrombosis involving the right lower extremity. Electronically signed by: Leon Carrington MD 08/15/2025 04:53 PM EDT
== END 2025-08-15 16:05 | disposition home or self-care (01) ==
LOC: HO.US 16:04
PROVIDERS: PCP Nurse Practitioner Family; Visit Provider Nurse Practitioner Family
DX: I83.11 Varicose veins of right lower extremity with inflammation (principal); I83.12 Varicose veins of left lower extremity with inflammation; M79.604 Pain in right leg; Z28.21 Immunization not carried out because of patient refusal; S99.921A Unspecified injury of right foot, initial encounter; Z79.899 Other long term (current) drug therapy
CPT/HCPCS: 93971; 99212

== ENCOUNTER → 2025-08-15 16:10 | Outpatient (BNV) | payer OTHER, SELFPAY | PROVIDERS: PCP Nurse Practitioner Family; Visit Provider Radiology Diagnostic Radiology | DX: I83.11 Varicose veins of right lower extremity with inflammation (principal) | CPT/HCPCS: 93971 ==